=== PATIENT | female | born 1950 | race Caucasian/White ===

== ENCOUNTER 2017-03-15 14:32 | Outpatient (CLI) | payer MEDICARE ==
--- NOTE | 2017-03-15 17:40 | RAD ---
PA AND LATERAL VIEWS CHEST: HISTORY: Chronic obstructive pulmonary disease. FINDINGS: Comparison is made with the exam of 04/11/2011. The heart size is normal. The lungs are expanded without focal areas of consolidation, pneumothorax , or pleural effusions. Degenerative changes of the spine. IMPRESSION: No radiographic evidence of acute cardiopulmonary process. POS: [facility]
== END 2017-03-15 14:33 | disposition home or self-care (01) ==
LOC: RAD-FRANK 14:32
PROVIDERS: ATTEND Internal Medicine
DX: J44.9 Chronic obstructive pulmonary disease, unspecified (principal)
CPT/HCPCS: 71020

== ENCOUNTER 2017-03-17 12:59 | Outpatient (CLI) | payer MEDICARE ==
--- NOTE | 2017-03-20 10:56 | PFT ---
PATIENT HISTORY: HEIGHT: 54 IN WEIGHT: 116 LBS SMOKER: QUIT HOW LON YEARS PACKS PER DAY: 1 PACK PRODUCTIVE COUGH: NO LUNG DISEASE: SOB PHYSICIAN INTERPRETATION FINAL REPORT: FEV1 is 930 mL this improves to 1.08 liters after bronchodilators. Best FVC is 2.07. Total lung capacity is normal at 4.23 liters. RV/TLC ratio is increased. Diffusion is reduced and does not correct for volumes. There is no evidence of extrathoracic airway obstruction on flow volume loop. IMPRESSION: Overall this study that is suggestive of a severe obstructive defect with air trapping. There is a response to bronchodilators noted. Supplier Diversity Director: ARGENT[place] Cdl Instructor: ARGENTINA SUMNER
== END 2017-03-17 13:00 | disposition home or self-care (01) ==
LOC: CP 12:59
PROVIDERS: ATTEND Internal Medicine
DX: J44.9 Chronic obstructive pulmonary disease, unspecified (principal)
CPT/HCPCS: 94060; 94727; 94729

== ENCOUNTER 2020-11-08 09:36 | Inpatient (IN) | payer MEDICARE ==
[2020-11-08 18:16] VITALS: BMI 23.7
[2020-11-14 16:48] VITALS: BP 106/72; TEMP 98.2
== END 2020-11-14 18:20 | disposition home or self-care (01) | DRG 871 ==
LOC: ERS 09:36 → ERHOLD 13:08 → 2SW 17:34
PROVIDERS: ADMIT Family Medicine; ATTEND Internal Medicine
DX: A41.9 Sepsis, unspecified organism (principal); J96.01 Acute respiratory failure with hypoxia; I50.31 Acute diastolic (congestive) heart failure; E87.1 Hypo-osmolality and hyponatremia; N39.0 Urinary tract infection, site not specified; N17.9 Acute kidney failure, unspecified; J44.1 Chronic obstructive pulmonary disease with (acute) exacerbation; I13.0 Hypertensive heart and chronic kidney disease with heart failure and stage 1 through stage 4 chronic kidney disease, or unspecified chronic kidney disease; I47.1 Supraventricular tachycardia; Z20.822 Contact with and (suspected) exposure to COVID-19; R79.89 Other specified abnormal findings of blood chemistry; N18.30 Chronic kidney disease, stage 3 unspecified; B95.5 Unspecified streptococcus as the cause of diseases classified elsewhere; I16.0 Hypertensive urgency; Z96.641 Presence of right artificial hip joint; F17.210 Nicotine dependence, cigarettes, uncomplicated; I48.0 Paroxysmal atrial fibrillation; Z82.5 Family history of asthma and other chronic lower respiratory diseases; Z82.49 Family history of ischemic heart disease and other diseases of the circulatory system; Z90.49 Acquired absence of other specified parts of digestive tract; Z88.2 Allergy status to sulfonamides; Z79.51 Long term (current) use of inhaled steroids; Z79.899 Other long term (current) drug therapy; R65.20 Severe sepsis without septic shock
CPT/HCPCS: 36415; 36416; 71045; 80048; 80053; 80061; 81003; 81015; 82553; 83605; 83880; 84484; 85025; 85610; 85730; 87040; 87077; 87086; 90471; 90732; 93005; 93010; 93306; 94640; 94760; 96365; G0009; J0360; J0456; J0696; J1160; J1650; J2920; J3490; J7620; U0002; U0005

== ENCOUNTER 2021-03-16 10:46 | Inpatient (IN) | payer MEDICARE ==
[2021-03-16] MEDS ORDERED: cefTRIAXone\\ROCEPHIN 2 GM VIAL ONE (11:17)
[2021-03-16] MEDS ORDERED: Magnesium 2 GM/50 ML BAG (IN WATER) ONE (11:17)
[2021-03-16 11:29] LABS: White Blood Cell (WBC) Count 6.7 thou/uL (4.8-10.8)
[2021-03-16 11:36] LABS: INR-International Normal Ratio 1.2; PTT 27.6 sec (22.9-36.1); Prothrombin Time 14.9 sec (12.0-14.7)
[2021-03-16] MEDS ORDERED: Azithromycin 250 MG TAB ONE (11:43)
[2021-03-16 11:44] LABS: #Basophils 0.1 thou/uL (0.0-0.2); #Eosinphils 0.1 thou/uL (0.0-0.7); #Lymphocytes 2.2 thou/uL (1.20-3.40); #Monocytes 0.5 thou/uL (0.11-0.59); #Neutrophils 3.9 thou/uL (1.40-6.50); %Basophils 0.8 % (0.0-1.0); %Eosinophils 0.8 % (0.0-10.0); %Lymphocytes 32.6 % (21.0-51.0); %Monocytes 7.2 % (0.0-10.0); %Neutrophils 58.7 % (42.0-75.0); Hemoglobin 14.4 g/dL (12.0-16.0); MDiff Complete? YES; Macrocytosis MODERATE=16-30 cells (100X) (0-5/hpf); Mean Corpuscular HGB CONC 33.8 g/dL (32.0-36.0); Mean Corpuscular Hemoglobin 36.6 pg (27.0-31.0); Mean Platelet Volume 7.7 fL (7.4-10.4); Platelet Count 137 thou/uL (130-400); Platelet Morphology Comment Appears Adequate; RBC Distribution Width 12.8 % (11.5-14.5); Red Blood Cell (RBC) Count 3.93 mill/uL (4.20-5.40)
[2021-03-16 12:12] LABS: SARS-CoV-2 NAA Rapid Test Not Detected (NotDetected)
[2021-03-16 12:15] LABS: CKMB 7.1 ng/mL (0-6.6)
[2021-03-16 12:33] LABS: Bacteria/HPF None Seen HPF (None Seen); Bilirubin Negative (Negative); Blood, Urine Trace (Negative); Clarity Clear (Clear); Glucose, Urine (Dipstick) Normal (Negative); Ketone, Urine Negative (Negative); Leukocyte Negative Leu/uL (Negative); Nitrite Negative (Negative); Protein, Urine (Dipstick) 10 mg/dL (Neg-Trace); RBC/HPF 0-3 HPF (0-3); Specific Gravity, Urine 1.012 (1.002-1.036); Squamous Epithelial 0-3 HPF (0-3); Urobilinogen Normal mg/dL (Less than 2); WBC/HPF 0-3 HPF (0-3); pH, Urine 5.5 (5.0-9.0)
[2021-03-16 12:35] LABS: Chloride 98 mmol/L (98-107); Potassium 4.1 mmol/L (3.5-5.1); Sodium 138 mmol/L (136-145)
[2021-03-16 12:36] LABS: Calcium 9.1 mg/dL (7.8-10.44); Glucose 101 mg/dL (80-115)
[2021-03-16 12:37] LABS: Globulin 2.7 g/dL (2.4-3.5); Protein, Total 6.7 g/dL (5.8-8.1)
[2021-03-16 12:38] LABS: Anion Gap 17 mmol/L (10-20); Bilirubin, Total 0.8 mg/dL (0.2-1.2); Carbon Dioxide 27 mmol/L (23-31)
[2021-03-16 12:39] LABS: Alkaline Phosphatase 52 U/L (40-110)
[2021-03-16 12:40] LABS: Calc. Creatinine Clearance 0 mL/min (70-130)
[2021-03-16 12:41] LABS: BUN (Urea Nitrogen) 28 mg/dL (9.8-20.1)
[2021-03-16 12:42] LABS: ALT (SGPT) 26 U/L (8-55); AST (SGOT) 56 U/L (5-34)
[2021-03-16] MEDS ORDERED: Aspirin Chewable 81 MG TAB ONE (13:29)
[2021-03-16] MEDS ORDERED: Ondansetron PF 4 MG/2 ML Vial IVP PRN (14:10)
[2021-03-16] MEDS ORDERED: Calcium Carbonate 500 MG ChewTAB PO PRN (14:10)
[2021-03-16 14:49] LABS: Troponin I 0.019 ng/mL (< 0.028)
[2021-03-16] MEDS ORDERED: methylPREDNISolone Sod Succ/PF 125 MG/2 ML VIAL IVP SCH (16:30)
[2021-03-16 17:45] LABS: Troponin I Less than 0.010 ng/mL (< 0.028)
[2021-03-16] MEDS: Dronedarone HCl 400 MG TAB PO SCH (18:05)
[2021-03-16] MEDS: Acetaminophen 325 MG TAB PO PRN (19:53)
[2021-03-16] MEDS: Apixaban 2.5 MG TAB PO SCH (19:53)
[2021-03-16] MEDS ORDERED: Doxycycline 100 MG CAP PO SCH (21:00)
[2021-03-16] MEDS ORDERED: Famotidine/PF 20 mg/2ml Vial SLOW IVP SCH (21:00)
[2021-03-17] MEDS: Levalbuterol HCl 0.63 MG/3 ML NEB NEB PRN ×2 (02:52→22:54)
[2021-03-17 05:04] LABS: Band 2 % (5-11); Hemoglobin 12.9 g/dL (12.0-16.0); Lymphocytes 5 % (21-51); MDiff Complete? YES; Macrocytosis SLIGHT = 6-15 cells (100X) (0-5/hpf); Mean Corpuscular HGB CONC 33.2 g/dL (32.0-36.0); Mean Corpuscular Hemoglobin 35.6 pg (27.0-31.0); Mean Platelet Volume 7.8 fL (7.4-10.4); Monocytes 3 % (0-10); Neutrophil 90 % (42-75); Platelet Count 137 thou/uL (130-400); Platelet Morphology Comment Appears Adequate; RBC Distribution Width 12.4 % (11.5-14.5); Red Blood Cell (RBC) Count 3.61 mill/uL (4.20-5.40); White Blood Cell (WBC) Count 4.8 thou/uL (4.8-10.8)
[2021-03-17 05:15] LABS: Anion Gap 16 mmol/L (10-20); BUN (Urea Nitrogen) 36 mg/dL (9.8-20.1); Calc. Creatinine Clearance 29 mL/min (70-130); Calcium 9.4 mg/dL (7.8-10.44); Carbon Dioxide 22 mmol/L (23-31); Chloride 98 mmol/L (98-107); Glucose 149 mg/dL (80-115); Potassium 4.3 mmol/L (3.5-5.1); Sodium 132 mmol/L (136-145)
[2021-03-17] MEDS ORDERED: predniSONE 20 MG TAB PO SCH (08:00)
[2021-03-17] MEDS ORDERED: Non-Formulary Item 1 EACH (Albuterol Sulfate [Albuterol Sulfate Hfa] 8.5 GM Hfa.Aer.Ad) INH PRN (08:39)
[2021-03-17] MEDS ORDERED: Sodium Chloride 0.9% 1,000 ML IV SCH (08:45)
[2021-03-17] MEDS: Dronedarone HCl 400 MG TAB PO SCH ×2 (09:28→18:24)
[2021-03-17] MEDS: Apixaban 2.5 MG TAB PO SCH ×2 (09:28→20:18)
[2021-03-17] MEDS: Acetaminophen 325 MG TAB PO PRN (15:40)
[2021-03-17] MEDS: Benzonatate 100 MG CAP PO PRN (15:40)
[2021-03-17] MEDS: Cepastat Lozenges 1 LOZ PO PRN (18:24)
[2021-03-17] MEDS: Famotidine/PF 20 mg/2ml Vial SLOW IVP SCH (20:18)
[2021-03-18] MEDS ORDERED: methylPREDNISolone Sod Succ/PF 125 MG/2 ML VIAL IVP SCH (03:30)
[2021-03-18] MEDS ORDERED: Lorazepam 2 MG/ML VIAL SLOW IVP SCH (03:45)
[2021-03-18] MEDS ORDERED: Rocuronium Bromide 10 MG/ML (10ML VIAL) ONE (04:59)
[2021-03-18 05:27] LABS: pH, Arterial 7.05 (7.35-7.45)
[2021-03-18 05:28] LABS: Actual Bicarbonate (HCO3a) 20.1 mEq/L (22-28); Base Excess (BEa) -11.6 mEq/L (-2.0 to +3.0); CO2 Tension 73.8 mmHg (35.0-45.0); Carboxyhemoglobin (COHb) 0.1 gm% (0.0-3.0); Hemoglobin (Hb) 13.9 g/dL (12.0-16.0)
[2021-03-18 05:29] LABS: Potassium - ABG Lab 4.43 mmol/L (3.70-5.30)
[2021-03-18 05:30] LABS: Calcium, Ionized (arterial) 1.22 mmol/L (1.12-1.30); Puncture Site RRA
[2021-03-18 05:42] LABS: #Lymphocytes 1.2 thou/uL (1.20-3.40); #Monocytes 0.4 thou/uL (0.11-0.59); #Neutrophils 9.5 thou/uL (1.40-6.50); %Basophils 0.1 % (0.0-1.0); %Eosinophils 0.2 % (0.0-10.0); %Lymphocytes 10.5 % (21.0-51.0); %Monocytes 3.5 % (0.0-10.0); %Neutrophils 85.7 % (42.0-75.0); Hemoglobin 13.8 g/dL (12.0-16.0); Mean Corpuscular HGB CONC 33.5 g/dL (32.0-36.0); Mean Corpuscular Hemoglobin 37.2 pg (27.0-31.0); Mean Platelet Volume 7.9 fL (7.4-10.4); Platelet Count 154 thou/uL (130-400); RBC Distribution Width 12.5 % (11.5-14.5); Red Blood Cell (RBC) Count 3.72 mill/uL (4.20-5.40); White Blood Cell (WBC) Count 11.1 thou/uL (4.8-10.8)
[2021-03-18 05:59] LABS: ALT (SGPT) 29 U/L (8-55); AST (SGOT) 55 U/L (5-34); Albumin 4.2 g/dL (3.4-4.8); Alkaline Phosphatase 60 U/L (40-110); Anion Gap 19 mmol/L (10-20); BUN (Urea Nitrogen) 32 mg/dL (9.8-20.1); Bilirubin, Total 0.7 mg/dL (0.2-1.2); Calc. Creatinine Clearance 29 mL/min (70-130); Carbon Dioxide 21 mmol/L (23-31); Chloride 99 mmol/L (98-107); Glucose 244 mg/dL (80-115); Lactic Acid 4.9 mmol/L (0.5-2.2); Magnesium 2.4 mg/dL (1.6-2.6); Potassium 5.2 mmol/L (3.5-5.1); Protein, Total 7.2 g/dL (5.8-8.1); Sodium 134 mmol/L (136-145)
[2021-03-18 06:05] LABS: Troponin I 0.727 ng/mL (< 0.028)
[2021-03-18] MEDS ORDERED: Ventilator Sedation Protocol 1 EACH FS SCH (06:30)
[2021-03-18] MEDS ORDERED: Cefepime 2 GM in Sodium Chloride 0.9% 100 ML IVPB SCH (06:30)
[2021-03-18] MEDS ORDERED: Morphine 2 MG/ML VIAL SLOW IVP PRN (06:45)
[2021-03-18] MEDS ORDERED: DISCONTINUE PREVIOUS NARCOTIC PAIN MEDICATIONS AND BENZODIAZEPINES FS SCH (06:45)
[2021-03-18] MEDS ORDERED: Propofol BOLUS 1,000 MG/100 ML VIAL IV PRN (06:45)
[2021-03-18] MEDS ORDERED: Fentanyl BOLUS 250 ML IVPB PRN (06:45)
[2021-03-18] MEDS ORDERED: Lorazepam 2 MG/ML VIAL SLOW IVP PRN (06:45)
[2021-03-18] MEDS ORDERED: Sodium Chloride 0.9% 40 ML ONE (07:08)
[2021-03-18] MEDS ORDERED: Propofol 1,000 MG/100 ML VIAL IV ONE (07:15)
[2021-03-18] MEDS: Fentanyl CADD 100 ML IV SCH ×2 (07:39→18:15)
[2021-03-18] MEDS: methylPREDNISolone Sod Succ 40 MG VIAL IVP SCH ×4 (07:43→23:57)
[2021-03-18] MEDS: Dronedarone HCl 400 MG TAB PO SCH (07:43)
[2021-03-18 07:44] LABS: Actual Bicarbonate (HCO3a) 20.8 mEq/L (22-28); Base Excess (BEa) -3.9 mEq/L (-2.0 to +3.0); CO2 Tension 36.8 mmHg (35.0-45.0); Calcium, Ionized (arterial) 1.14 mmol/L (1.12-1.30); Hemoglobin (Hb) 13.2 g/dL (12.0-16.0); O2 Tension (PaO2), arterial 240.7 mmHg (> 80.0); Potassium - ABG Lab 4.39 mmol/L (3.70-5.30); pH, Arterial 7.37 (7.35-7.45)
[2021-03-18 07:45] LABS: Puncture Site RRA
[2021-03-18] MEDS ORDERED: CEFEPIME IVPB PRN (08:55)
[2021-03-18] MEDS ORDERED: Doxycycline 100 MG CAP PO SCH (09:00)
[2021-03-18 09:18] LABS: Troponin I 0.949 ng/mL (< 0.028)
[2021-03-18] MEDS ORDERED: Norepinephrine 8 MG/0.9% NS 250 ML IVPB SCH (09:45)
[2021-03-18] MEDS ORDERED: Vecuronium 10 MG VIAL IVP PRN ×2 (11:44→16:19)
[2021-03-18] MEDS ORDERED: Furosemide 20 MG/2 ML VIAL SLOW IVP SCH (13:15)
[2021-03-18] MEDS ORDERED: Aspirin 81 mg Enteric Coated Tablet PO SCH (13:15)
[2021-03-18] MEDS: Lactated Ringer's 1,000 ML IV SCH (13:25)
[2021-03-18] MEDS ORDERED: Fentanyl CADD 100 ML ONE (18:12)
[2021-03-18] MEDS ORDERED: Apixaban 2.5 MG TAB PER TUBE SCH (21:00)
[2021-03-18] MEDS ORDERED: Apixaban 2.5 MG TAB PO SCH (21:00)
[2021-03-18] MEDS ORDERED: Enoxaparin Sodium 40 MG/0.4 ML SYRINGE SC SCH (21:00)
[2021-03-18] MEDS: Famotidine/PF 20 mg/2ml Vial SLOW IVP SCH (21:27)
[2021-03-18] MEDS: Montelukast Sodium 10 mg Tablet PER TUBE SCH (21:27)
[2021-03-19] MEDS: Propofol 1,000 MG/100 ML VIAL IV PRN ×2 (03:00→18:52)
[2021-03-19] MEDS: Lactated Ringer's 1,000 ML IV SCH ×2 (03:15→17:30)
[2021-03-19 04:25] LABS: #Lymphocytes 0.1 thou/uL (1.20-3.40); #Monocytes 0.2 thou/uL (0.11-0.59); #Neutrophils 7.1 thou/uL (1.40-6.50); %Eosinophils 0.1 % (0.0-10.0); %Lymphocytes 1.9 % (21.0-51.0); %Monocytes 3.3 % (0.0-10.0); %Neutrophils 94.8 % (42.0-75.0); Hemoglobin 12.1 g/dL (12.0-16.0); Mean Corpuscular HGB CONC 33.3 g/dL (32.0-36.0); Mean Platelet Volume 8.3 fL (7.4-10.4); Platelet Count 128 thou/uL (130-400); RBC Distribution Width 12.5 % (11.5-14.5); Red Blood Cell (RBC) Count 3.27 mill/uL (4.20-5.40); White Blood Cell (WBC) Count 7.5 thou/uL (4.8-10.8)
[2021-03-19 04:49] LABS: Anion Gap 14 mmol/L (10-20); BUN (Urea Nitrogen) 45 mg/dL (9.8-20.1); Calc. Creatinine Clearance 28 mL/min (70-130); Calcium 9.2 mg/dL (7.8-10.44); Carbon Dioxide 23 mmol/L (23-31); Chloride 102 mmol/L (98-107); Glucose 165 mg/dL (80-115); Potassium 4.7 mmol/L (3.5-5.1); Sodium 134 mmol/L (136-145)
[2021-03-19 05:04] LABS: Critical Call Chem Troponin I RESULT DECREASING; Troponin I 0.524 ng/mL (< 0.028)
[2021-03-19] MEDS: Cefepime 2 GM in Sodium Chloride 0.9% 100 ML IVPB SCH (05:53)
[2021-03-19] MEDS: methylPREDNISolone Sod Succ 40 MG VIAL IVP SCH ×3 (05:53→18:52)
[2021-03-19] MEDS ORDERED: Sodium Chloride 0.9% 500 ML IV SCH (06:15)
[2021-03-19 07:05] LABS: Actual Bicarbonate (HCO3a) 22.3 mEq/L (22-28); Base Excess (BEa) -4.2 mEq/L (-2.0 to +3.0); CO2 Tension 46.6 mmHg (35.0-45.0); Calcium, Ionized (arterial) 1.21 mmol/L (1.12-1.30); Carboxyhemoglobin (COHb) 0.1 gm% (0.0-3.0); Hemoglobin (Hb) 12.5 g/dL (12.0-16.0); O2 Tension (PaO2), arterial 82.6 mmHg (> 80.0); Potassium - ABG Lab 4.65 mmol/L (3.70-5.30)
[2021-03-19] MEDS: Fentanyl CADD 100 ML IV SCH ×2 (07:38→23:31)
[2021-03-19 07:54] LABS: Puncture Site RRA
[2021-03-19] MEDS ORDERED: Lactated Ringer's 1,000 ML IV SCH (10:45)
[2021-03-19] MEDS ORDERED: Enoxaparin Sodium 30 MG/0.3 ML SYRINGE SC SCH (10:45)
[2021-03-19] MEDS: Montelukast Sodium 10 mg Tablet PER TUBE SCH (20:00)
[2021-03-19] MEDS: Famotidine/PF 20 mg/2ml Vial SLOW IVP SCH (20:00)
[2021-03-19] MEDS ORDERED: Enoxaparin Sodium 40 MG/0.4 ML SYRINGE SC SCH (21:00)
[2021-03-19] MEDS ORDERED: Fentanyl CADD 100 ML ONE (23:23)
[2021-03-20] MEDS: methylPREDNISolone Sod Succ 40 MG VIAL IVP SCH ×4 (01:26→20:13)
[2021-03-20] MEDS: Lactated Ringer's 1,000 ML IV SCH ×4 (02:06→20:15)
[2021-03-20 04:38] LABS: #Lymphocytes 0.2 thou/uL (1.20-3.40); #Monocytes 0.2 thou/uL (0.11-0.59); #Neutrophils 4.3 thou/uL (1.40-6.50); %Eosinophils 0.1 % (0.0-10.0); %Lymphocytes 3.5 % (21.0-51.0); %Neutrophils 91.5 % (42.0-75.0); Hemoglobin 10.5 g/dL (12.0-16.0); Mean Corpuscular HGB CONC 33.1 g/dL (32.0-36.0); Mean Corpuscular Hemoglobin 36.8 pg (27.0-31.0); Mean Platelet Volume 8.4 fL (7.4-10.4); Platelet Count 104 thou/uL (130-400); RBC Distribution Width 12.3 % (11.5-14.5); Red Blood Cell (RBC) Count 2.86 mill/uL (4.20-5.40); White Blood Cell (WBC) Count 4.7 thou/uL (4.8-10.8)
[2021-03-20 04:59] LABS: Anion Gap 14 mmol/L (10-20); BUN (Urea Nitrogen) 62 mg/dL (9.8-20.1); Calc. Creatinine Clearance 26 mL/min (70-130); Calcium 9.1 mg/dL (7.8-10.44); Carbon Dioxide 23 mmol/L (23-31); Chloride 102 mmol/L (98-107); Glucose 128 mg/dL (80-115); Potassium 4.6 mmol/L (3.5-5.1); Sodium 134 mmol/L (136-145)
[2021-03-20 05:11] LABS: Troponin I 0.565 ng/mL (< 0.028)
[2021-03-20] MEDS: Cefepime 2 GM in Sodium Chloride 0.9% 100 ML IVPB SCH (05:19)
[2021-03-20 07:28] LABS: Actual Bicarbonate (HCO3a) 22.8 mEq/L (22-28); Base Excess (BEa) -4.1 mEq/L (-2.0 to +3.0); CO2 Tension 49.2 mmHg (35.0-45.0); Calcium, Ionized (arterial) 1.25 mmol/L (1.12-1.30); Carboxyhemoglobin (COHb) 0.1 gm% (0.0-3.0); Hemoglobin (Hb) 12.4 g/dL (12.0-16.0); O2 Tension (PaO2), arterial 67.7 mmHg (> 80.0); Potassium - ABG Lab 4.85 mmol/L (3.70-5.30); pH, Arterial 7.28 (7.35-7.45)
[2021-03-20 07:43] LABS: Puncture Site RRA
[2021-03-20] MEDS ORDERED: Dronedarone HCl 400 MG TAB PO SCH (08:15)
[2021-03-20] MEDS ORDERED: DC Sedation Protocol FS ONE (08:20)
[2021-03-20] MEDS ORDERED: Enoxaparin Sodium 30 MG/0.3 ML SYRINGE SC SCH (09:00)
[2021-03-20] MEDS: Aspirin 81 mg Enteric Coated Tablet PO SCH (09:49)
[2021-03-20] MEDS: Enoxaparin Sodium 30 MG/0.3 ML SYRINGE SC SCH ×2 (09:53→20:14)
[2021-03-20] MEDS: Dronedarone HCl 400 MG TAB PO SCH (17:01)
[2021-03-20] MEDS: Acetaminophen 325 MG TAB PO PRN (17:05)
[2021-03-20] MEDS: Mometasone 200 MCG/Formoterol 5 MCG 120 PUFF INHALER INH SCH (18:16)
[2021-03-20] MEDS: Montelukast Sodium 10 mg Tablet PER TUBE SCH (20:13)
[2021-03-20] MEDS: Famotidine/PF 20 mg/2ml Vial SLOW IVP SCH (20:13)
[2021-03-21 04:54] LABS: #Lymphocytes 0.2 thou/uL (1.20-3.40); #Monocytes 0.2 thou/uL (0.11-0.59); #Neutrophils 2.7 thou/uL (1.40-6.50); %Eosinophils 0.2 % (0.0-10.0); %Lymphocytes 7.1 % (21.0-51.0); %Monocytes 5.4 % (0.0-10.0); %Neutrophils 87.3 % (42.0-75.0); Hemoglobin 10.9 g/dL (12.0-16.0); Mean Corpuscular HGB CONC 34.1 g/dL (32.0-36.0); Mean Corpuscular Hemoglobin 36.8 pg (27.0-31.0); Mean Platelet Volume 7.8 fL (7.4-10.4); Platelet Count 120 thou/uL (130-400); RBC Distribution Width 12.1 % (11.5-14.5); Red Blood Cell (RBC) Count 2.97 mill/uL (4.20-5.40); White Blood Cell (WBC) Count 3.1 thou/uL (4.8-10.8)
[2021-03-21 05:09] LABS: Anion Gap 10 mmol/L (10-20); BUN (Urea Nitrogen) 58 mg/dL (9.8-20.1); Calc. Creatinine Clearance 35 mL/min (70-130); Calcium 9.7 mg/dL (7.8-10.44); Carbon Dioxide 28 mmol/L (23-31); Chloride 104 mmol/L (98-107); Glucose 125 mg/dL (80-115); Potassium 4.6 mmol/L (3.5-5.1); Sodium 137 mmol/L (136-145)
[2021-03-21] MEDS: Cefepime 1 GM in Sodium Chloride 0.9% 100 ML IVPB SCH ×2 (05:56→17:29)
[2021-03-21] MEDS: Mometasone 200 MCG/Formoterol 5 MCG 120 PUFF INHALER INH SCH ×2 (07:34→19:48)
[2021-03-21] MEDS: Aspirin 81 mg Enteric Coated Tablet PO SCH (07:38)
[2021-03-21] MEDS: Dronedarone HCl 400 MG TAB PO SCH (07:38)
[2021-03-21] MEDS: methylPREDNISolone Sod Succ 40 MG VIAL IVP SCH ×2 (07:39→20:57)
[2021-03-21] MEDS: Enoxaparin Sodium 30 MG/0.3 ML SYRINGE SC SCH ×2 (07:39→20:56)
[2021-03-21] MEDS ORDERED: Furosemide 40 MG/4 ML VIAL SLOW IVP SCH (11:15)
[2021-03-21] MEDS ORDERED: Potassium Chloride 20 MEQ TAB PO SCH (12:00)
[2021-03-21] MEDS: Amiodarone 450 MG, Admixture Fee 1 EACH in Dextrose 5% in Water 250 ML IVPB SCH ×2 (16:38→23:55)
[2021-03-21] MEDS: Famotidine/PF 20 mg/2ml Vial SLOW IVP SCH (20:57)
[2021-03-21] MEDS: Montelukast Sodium 10 mg Tablet PER TUBE SCH (20:57)
[2021-03-22] MEDS: Benzonatate 100 MG CAP PO PRN ×3 (03:04→21:32)
[2021-03-22 03:56] LABS: #Lymphocytes 0.2 thou/uL (1.20-3.40); #Monocytes 0.1 thou/uL (0.11-0.59); #Neutrophils 2.8 thou/uL (1.40-6.50); %Basophils 0.4 % (0.0-1.0); %Eosinophils 0.2 % (0.0-10.0); %Lymphocytes 6.5 % (21.0-51.0); %Monocytes 4.4 % (0.0-10.0); %Neutrophils 88.6 % (42.0-75.0); Hemoglobin 11.4 g/dL (12.0-16.0); Mean Corpuscular HGB CONC 33.7 g/dL (32.0-36.0); Mean Corpuscular Hemoglobin 36.4 pg (27.0-31.0); Mean Platelet Volume 7.6 fL (7.4-10.4); Platelet Count 151 thou/uL (130-400); RBC Distribution Width 12.2 % (11.5-14.5); Red Blood Cell (RBC) Count 3.14 mill/uL (4.20-5.40); White Blood Cell (WBC) Count 3.2 thou/uL (4.8-10.8)
[2021-03-22 04:14] LABS: Anion Gap 14 mmol/L (10-20); BUN (Urea Nitrogen) 53 mg/dL (9.8-20.1); Calc. Creatinine Clearance 37 mL/min (70-130); Calcium 9.8 mg/dL (7.8-10.44); Carbon Dioxide 27 mmol/L (23-31); Chloride 103 mmol/L (98-107); Glucose 137 mg/dL (80-115); Potassium 4.8 mmol/L (3.5-5.1); Sodium 139 mmol/L (136-145)
[2021-03-22] MEDS: Cefepime 1 GM in Sodium Chloride 0.9% 100 ML IVPB SCH ×2 (06:05→17:41)
[2021-03-22] MEDS: Mometasone 200 MCG/Formoterol 5 MCG 120 PUFF INHALER INH SCH ×2 (06:55→22:29)
[2021-03-22] MEDS: Enoxaparin Sodium 30 MG/0.3 ML SYRINGE SC SCH ×2 (08:23→21:33)
[2021-03-22] MEDS: Aspirin 81 mg Enteric Coated Tablet PO SCH (08:23)
[2021-03-22] MEDS: methylPREDNISolone Sod Succ 40 MG VIAL IVP SCH ×2 (08:23→21:34)
[2021-03-22] MEDS: Furosemide 20 MG/2 ML VIAL SLOW IVP SCH (08:23)
[2021-03-22] MEDS ORDERED: Amiodarone 450 MG, Admixture Fee 1 EACH in Dextrose 5% in Water 250 ML IVPB SCH (09:10)
[2021-03-22] MEDS: Acetaminophen 325 MG TAB PO PRN (13:07)
[2021-03-22] MEDS: GUAIFENESIN SF SOLN 200 MG/10 ML UDCUP PO PRN (17:49)
[2021-03-22] MEDS ORDERED: Furosemide 20 MG/2 ML VIAL SLOW IVP SCH (18:00)
[2021-03-22] MEDS ORDERED: Potassium Chloride 20 MEQ TAB PO SCH (18:00)
[2021-03-22] MEDS: Famotidine/PF 20 mg/2ml Vial SLOW IVP SCH (21:33)
[2021-03-22] MEDS: Montelukast Sodium 10 mg Tablet PER TUBE SCH (21:34)
[2021-03-23] MEDS ORDERED: Metoprolol Tartrate 5 MG/5 ML VIAL ONE (02:18)
[2021-03-23] MEDS ORDERED: Metoprolol Tartrate 5 MG/5 ML VIAL IVP SCH ×2 (02:30→04:30)
[2021-03-23 04:15] LABS: #Lymphocytes 0.3 thou/uL (1.20-3.40); #Monocytes 0.3 thou/uL (0.11-0.59); #Neutrophils 3.7 thou/uL (1.40-6.50); %Eosinophils 0.2 % (0.0-10.0); %Lymphocytes 6.1 % (21.0-51.0); %Neutrophils 87.8 % (42.0-75.0); Hemoglobin 12.1 g/dL (12.0-16.0); Mean Corpuscular HGB CONC 33.6 g/dL (32.0-36.0); Mean Corpuscular Hemoglobin 36.2 pg (27.0-31.0); Mean Platelet Volume 7.7 fL (7.4-10.4); Platelet Count 162 thou/uL (130-400); RBC Distribution Width 12.2 % (11.5-14.5); Red Blood Cell (RBC) Count 3.33 mill/uL (4.20-5.40); White Blood Cell (WBC) Count 4.2 thou/uL (4.8-10.8)
[2021-03-23 04:39] LABS: Anion Gap 12 mmol/L (10-20); BUN (Urea Nitrogen) 53 mg/dL (9.8-20.1); Calc. Creatinine Clearance 36 mL/min (70-130); Calcium 9.8 mg/dL (7.8-10.44); Carbon Dioxide 31 mmol/L (23-31); Chloride 103 mmol/L (98-107); Glucose 147 mg/dL (80-115); Potassium 4.9 mmol/L (3.5-5.1); Sodium 141 mmol/L (136-145)
[2021-03-23] MEDS: Cefepime 1 GM in Sodium Chloride 0.9% 100 ML IVPB SCH ×2 (06:22→17:47)
[2021-03-23] MEDS: GUAIFENESIN SF SOLN 200 MG/10 ML UDCUP PO PRN (06:22)
[2021-03-23] MEDS: Mometasone 200 MCG/Formoterol 5 MCG 120 PUFF INHALER INH SCH ×2 (08:00→19:14)
[2021-03-23] MEDS: Aspirin 81 mg Enteric Coated Tablet PO SCH (09:32)
[2021-03-23] MEDS: Enoxaparin Sodium 30 MG/0.3 ML SYRINGE SC SCH (09:32)
[2021-03-23] MEDS: methylPREDNISolone Sod Succ 40 MG VIAL IVP SCH ×2 (09:33→21:30)
[2021-03-23] MEDS: Furosemide 20 MG/2 ML VIAL SLOW IVP SCH (09:33)
[2021-03-23] MEDS: Morphine 4 MG/ML VIAL SLOW IVP PRN ×4 (12:14→19:32)
[2021-03-23] MEDS ORDERED: Furosemide 20 MG/2 ML VIAL SLOW IVP SCH (18:00)
[2021-03-23] MEDS: Montelukast Sodium 10 mg Tablet PER TUBE SCH (21:30)
[2021-03-23] MEDS: Famotidine/PF 20 mg/2ml Vial SLOW IVP SCH (21:30)
[2021-03-23] MEDS: Acetaminophen 325 MG TAB PO PRN (22:47)
[2021-03-23] MEDS: Benzonatate 100 MG CAP PO PRN (22:47)
[2021-03-24 04:04] LABS: #Lymphocytes 0.2 thou/uL (1.20-3.40); #Monocytes 0.3 thou/uL (0.11-0.59); #Neutrophils 4.4 thou/uL (1.40-6.50); %Lymphocytes 4.4 % (21.0-51.0); %Monocytes 5.2 % (0.0-10.0); %Neutrophils 90.4 % (42.0-75.0); Hemoglobin 8.3 g/dL (12.0-16.0); Mean Corpuscular HGB CONC 33.5 g/dL (32.0-36.0); Mean Corpuscular Hemoglobin 35.9 pg (27.0-31.0); Mean Platelet Volume 7.3 fL (7.4-10.4); Platelet Count 177 thou/uL (130-400); RBC Distribution Width 12.2 % (11.5-14.5); Red Blood Cell (RBC) Count 2.32 mill/uL (4.20-5.40); White Blood Cell (WBC) Count 4.9 thou/uL (4.8-10.8)
[2021-03-24 04:24] LABS: Anion Gap 11 mmol/L (10-20); BUN (Urea Nitrogen) 53 mg/dL (9.8-20.1); Calc. Creatinine Clearance 35 mL/min (70-130); Calcium 9.7 mg/dL (7.8-10.44); Carbon Dioxide 33 mmol/L (23-31); Chloride 102 mmol/L (98-107); Glucose 146 mg/dL (80-115); Potassium 4.9 mmol/L (3.5-5.1); Sodium 141 mmol/L (136-145)
[2021-03-24] MEDS: GUAIFENESIN SF SOLN 200 MG/10 ML UDCUP PO PRN ×3 (04:24→22:56)
[2021-03-24] MEDS: Acetaminophen 325 MG TAB PO PRN ×2 (04:25→20:59)
[2021-03-24] MEDS: Cefepime 1 GM in Sodium Chloride 0.9% 100 ML IVPB SCH ×2 (05:26→17:32)
[2021-03-24] MEDS: Mometasone 200 MCG/Formoterol 5 MCG 120 PUFF INHALER INH SCH ×2 (07:51→19:48)
[2021-03-24] MEDS ORDERED: HYDROcodone/Acetaminophen 5/325 mg Tablet PO PRN (08:31)
[2021-03-24] MEDS ORDERED: Morphine 4 MG/ML VIAL SLOW IVP PRN (08:32)
[2021-03-24] MEDS: Furosemide 20 MG/2 ML VIAL SLOW IVP SCH (08:42)
[2021-03-24] MEDS: methylPREDNISolone Sod Succ 40 MG VIAL IVP SCH (08:42)
[2021-03-24] MEDS: Famotidine 20 MG TAB PO SCH (08:42)
[2021-03-24 11:12] LABS: SARS-CoV-2 PCR by NAA Not Detected (NotDetected)
[2021-03-24] MEDS: predniSONE 20 MG TAB PO SCH (12:59)
[2021-03-24 16:42] LABS: Hemoglobin 8.9 g/dL (12.0-16.0)
[2021-03-24] MEDS: Amiodarone 200 MG TAB PO SCH ×2 (17:32→20:59)
[2021-03-24] MEDS: Montelukast Sodium 10 mg Tablet PER TUBE SCH (20:59)
[2021-03-24] MEDS: Benzonatate 100 MG CAP PO PRN (21:00)
[2021-03-24] MEDS: Cyanocobalamin (Vitamin B-12) 1,000 MCG TAB PO SCH (21:02)
[2021-03-24] MEDS: Senokot S 8.6-50 MG TAB PO SCH (21:02)
[2021-03-24] MEDS: Folic Acid 1 MG TAB PO SCH (21:02)
[2021-03-25 05:35] LABS: #Lymphocytes 1.1 thou/uL (1.20-3.40); #Monocytes 0.6 thou/uL (0.11-0.59); #Neutrophils 4.3 thou/uL (1.40-6.50); %Basophils 0.3 % (0.0-1.0); %Eosinophils 0.5 % (0.0-10.0); %Monocytes 10.3 % (0.0-10.0); %Neutrophils 70.9 % (42.0-75.0); Hemoglobin 8.7 g/dL (12.0-16.0); Mean Corpuscular HGB CONC 32.9 g/dL (32.0-36.0); Mean Corpuscular Hemoglobin 35.6 pg (27.0-31.0); Mean Platelet Volume 7.5 fL (7.4-10.4); Platelet Count 213 thou/uL (130-400); RBC Distribution Width 12.2 % (11.5-14.5); Red Blood Cell (RBC) Count 2.43 mill/uL (4.20-5.40); White Blood Cell (WBC) Count 6.1 thou/uL (4.8-10.8)
[2021-03-25 05:49] LABS: Phosphorus 2.9 mg/dL (2.3-4.7)
[2021-03-25 05:53] LABS: Anion Gap 13 mmol/L (10-20); BUN (Urea Nitrogen) 51 mg/dL (9.8-20.1); Calc. Creatinine Clearance 33 mL/min (70-130); Calcium 9.9 mg/dL (7.8-10.44); Carbon Dioxide 34 mmol/L (23-31); Chloride 99 mmol/L (98-107); Glucose 94 mg/dL (80-115); Iron 86 ug/dL (50-170); Iron Binding Capacity, Total 314 mcg/dL (265-497); Magnesium 1.7 mg/dL (1.6-2.6); Potassium 4.1 mmol/L (3.5-5.1); Sodium 142 mmol/L (136-145)
[2021-03-25] MEDS: Cefepime 1 GM in Sodium Chloride 0.9% 100 ML IVPB SCH (06:01)
[2021-03-25] MEDS: Mometasone 200 MCG/Formoterol 5 MCG 120 PUFF INHALER INH SCH ×2 (06:42→18:50)
[2021-03-25] MEDS: Amiodarone 200 MG TAB PO SCH ×3 (08:28→21:06)
[2021-03-25] MEDS: Furosemide 20 MG/2 ML VIAL SLOW IVP SCH (08:30)
[2021-03-25] MEDS: Aspirin 81 mg Enteric Coated Tablet PO SCH (08:30)
[2021-03-25] MEDS: Senokot S 8.6-50 MG TAB PO SCH ×2 (08:31→21:13)
[2021-03-25] MEDS: Famotidine 20 MG TAB PO SCH (08:31)
[2021-03-25] MEDS: predniSONE 20 MG TAB PO SCH (08:39)
[2021-03-25] MEDS: Acetaminophen 325 MG TAB PO PRN ×2 (08:39→21:09)
[2021-03-25] MEDS: GUAIFENESIN SF SOLN 200 MG/10 ML UDCUP PO PRN ×2 (08:43→21:08)
[2021-03-25] MEDS ORDERED: Polyethylene Glycol 3350 17 GM Packet PO SCH (09:00)
[2021-03-25 09:07] VITALS: BMI 25.0
[2021-03-25] MEDS ORDERED: guaiFENesin ER 600 MG TAB PO SCH (10:15)
[2021-03-25] MEDS ORDERED: Loratadine 10 MG TAB PO SCH (10:15)
[2021-03-25] MEDS ORDERED: Magnesium Sulfate 4 GM in Sodium Chloride 0.9% 250 ML 250 ML IVPB SCH (10:15)
[2021-03-25] MEDS ORDERED: Magnesium 2 GM/50 ML 2 GM in Premix Bag 1 BAG IVPB SCH (10:30)
[2021-03-25] MEDS: Iron, Sodium Ferric Gluconate 250 MG in Sodium Chloride 0.9% 250 ML 250 ML IVPB SCH ×2 (11:19→22:44)
[2021-03-25] MEDS: guaiFENesin ER 600 MG TAB PO SCH (21:06)
[2021-03-25] MEDS: Cyanocobalamin (Vitamin B-12) 1,000 MCG TAB PO SCH (21:06)
[2021-03-25] MEDS: Montelukast Sodium 10 mg Tablet PER TUBE SCH (21:06)
[2021-03-25] MEDS: Folic Acid 1 MG TAB PO SCH (21:06)
[2021-03-25] MEDS: Cepastat Lozenges 1 LOZ PO PRN (23:34)
[2021-03-26] MEDS: Benzonatate 100 MG CAP PO PRN (03:14)
[2021-03-26] MEDS: Cepastat Lozenges 1 LOZ PO PRN (04:12)
[2021-03-26 05:08] LABS: #Lymphocytes 1.1 thou/uL (1.20-3.40); #Monocytes 0.6 thou/uL (0.11-0.59); #Neutrophils 6.2 thou/uL (1.40-6.50); %Eosinophils 0.3 % (0.0-10.0); %Lymphocytes 13.6 % (21.0-51.0); %Monocytes 7.2 % (0.0-10.0); %Neutrophils 78.9 % (42.0-75.0); Hemoglobin 8.8 g/dL (12.0-16.0); Mean Corpuscular Hemoglobin 36.6 pg (27.0-31.0); Mean Platelet Volume 7.4 fL (7.4-10.4); Platelet Count 220 thou/uL (130-400); RBC Distribution Width 12.4 % (11.5-14.5); Red Blood Cell (RBC) Count 2.39 mill/uL (4.20-5.40); White Blood Cell (WBC) Count 7.9 thou/uL (4.8-10.8)
[2021-03-26 05:26] LABS: Anion Gap 11 mmol/L (10-20); BUN (Urea Nitrogen) 44 mg/dL (9.8-20.1); Calc. Creatinine Clearance 34 mL/min (70-130); Calcium 9.6 mg/dL (7.8-10.44); Carbon Dioxide 33 mmol/L (23-31); Chloride 101 mmol/L (98-107); Glucose 118 mg/dL (80-115); Sodium 141 mmol/L (136-145)
[2021-03-26] MEDS ORDERED: Metoprolol Tartrate 5 MG/5 ML VIAL IVP PRN (05:36)
[2021-03-26] MEDS ORDERED: Metoprolol Tartrate 5 MG/5 ML VIAL IVP SCH (05:45)
[2021-03-26] MEDS: Mometasone 200 MCG/Formoterol 5 MCG 120 PUFF INHALER INH SCH (06:32)
[2021-03-26] MEDS ORDERED: Cefdinir 300 MG CAP PO SCH (09:00)
[2021-03-26] MEDS ORDERED: Loratadine 10 MG TAB PO SCH (09:00)
[2021-03-26] MEDS: guaiFENesin ER 600 MG TAB PO SCH (09:38)
[2021-03-26] MEDS: Famotidine 20 MG TAB PO SCH (09:39)
[2021-03-26] MEDS: Senokot S 8.6-50 MG TAB PO SCH (09:39)
[2021-03-26] MEDS: predniSONE 20 MG TAB PO SCH (09:39)
[2021-03-26] MEDS: Aspirin 81 mg Enteric Coated Tablet PO SCH (09:39)
[2021-03-26] MEDS: Amiodarone 200 MG TAB PO SCH (09:40)
[2021-03-26] MEDS ORDERED: Nicotine 14 MG PATCH TD PRN (09:45)
[2021-03-26 16:11] VITALS: BP 133/76; TEMP 98.1
[2021-03-26] MEDS ORDERED: Rosuvastatin 20 MG TAB PO SCH (21:00)
[2021-03-27] MEDS ORDERED: Furosemide 40 MG TAB PO SCH (07:30)
[2021-03-27] MEDS ORDERED: Potassium Chloride 20 MEQ TAB PO SCH (08:00)
[2021-03-27] MEDS ORDERED: Loratadine 10 MG TAB PO SCH (09:00)
== END 2021-03-26 16:15 | disposition home health service (06) | DRG 871 ==
LOC: ERS 10:46 → ERHOLD 12:27 → 2NO 14:25 → PACU-TCU 03-18 05:56 → CCU 03-18 11:06 → IMCU/EMU 03-21 19:23 → 2NO 03-24 19:22
PROVIDERS: ADMIT Hospitalist; ATTEND Internal Medicine
PROC: 5A1945Z Respiratory Ventilation, 24-96 Consecutive Hours (ICD-10-PCS; principal; 2021-03-18)
PROC: 0BH17EZ Insertion of Endotracheal Airway into Trachea, Via Natural or Artificial Opening (ICD-10-PCS; 2021-03-18)
PROC: 0D9670Z Drainage of Stomach with Drainage Device, Via Natural or Artificial Opening (ICD-10-PCS; 2021-03-18)
PROC: 3E033XZ Introduction of Vasopressor into Peripheral Vein, Percutaneous Approach (ICD-10-PCS; 2021-03-18)
PROC: 30233K1 Transfusion of Nonautologous Frozen Plasma into Peripheral Vein, Percutaneous Approach (ICD-10-PCS; 2021-03-23)
DX: A41.9 Sepsis, unspecified organism (principal); I21.A1 Myocardial infarction type 2; N17.0 Acute kidney failure with tubular necrosis; I50.31 Acute diastolic (congestive) heart failure; J96.21 Acute and chronic respiratory failure with hypoxia; J96.22 Acute and chronic respiratory failure with hypercapnia; R65.21 Severe sepsis with septic shock; J44.1 Chronic obstructive pulmonary disease with (acute) exacerbation; J45.902 Unspecified asthma with status asthmaticus; N18.4 Chronic kidney disease, stage 4 (severe); I13.0 Hypertensive heart and chronic kidney disease with heart failure and stage 1 through stage 4 chronic kidney disease, or unspecified chronic kidney disease; E87.1 Hypo-osmolality and hyponatremia; D62 Acute posthemorrhagic anemia; Z20.822 Contact with and (suspected) exposure to COVID-19; I48.0 Paroxysmal atrial fibrillation; Z96.641 Presence of right artificial hip joint; M79.81 Nontraumatic hematoma of soft tissue; Z79.01 Long term (current) use of anticoagulants; Z88.2 Allergy status to sulfonamides; Z79.51 Long term (current) use of inhaled steroids; Z79.899 Other long term (current) drug therapy; Z78.1 Physical restraint status; Z90.49 Acquired absence of other specified parts of digestive tract; D50.9 Iron deficiency anemia, unspecified; I25.10 Atherosclerotic heart disease of native coronary artery without angina pectoris; F17.210 Nicotine dependence, cigarettes, uncomplicated
CPT/HCPCS: 0240U; 36415; 36416; 36430; 36600; 51701; 71045; 74176; 80048; 80053; 81003; 81015; 82553; 82728; 82805; 83540; 83550; 83605; 83735; 83880; 84100; 84484; 85007; 85025; 85027; 85379; 85610; 85730; 86850; 86900; 86901; 87040; 87086; 93005; 93010; 93306; 94002; 94640; 94760; 96365; J0282; J0692; J0696; J1650; J1940; J2060; J2270; J2704; J2916; J2920; J2930; J3010; J3475; J3490; J7030; J7050; J7070; J7120; J7512; J7614; J7620; P9059; S0028; U0003; U0005

== ENCOUNTER 2021-05-20 06:48 | Day surgery (SDC) | payer MEDICARE ==
[2021-05-15 16:35] VITALS: BMI 23.7
[2021-05-20 08:27] LABS: #Eosinphils 0.2 thou/uL (0.0-0.7); #Lymphocytes 1.4 thou/uL (1.20-3.40); #Monocytes 0.5 thou/uL (0.11-0.59); #Neutrophils 3.3 thou/uL (1.40-6.50); %Basophils 0.6 % (0.0-1.0); %Eosinophils 3.2 % (0.0-10.0); %Lymphocytes 26.6 % (21.0-51.0); %Monocytes 8.4 % (0.0-10.0); %Neutrophils 61.3 % (42.0-75.0); Hemoglobin 10.8 g/dL (12.0-16.0); Mean Corpuscular Hemoglobin 36.4 pg (27.0-31.0); Mean Platelet Volume 7.7 fL (7.4-10.4); Platelet Count 202 thou/uL (130-400); RBC Distribution Width 13.6 % (11.5-14.5); Red Blood Cell (RBC) Count 2.98 mill/uL (4.20-5.40); White Blood Cell (WBC) Count 5.3 thou/uL (4.8-10.8)
[2021-05-20 08:39] LABS: ALT (SGPT) 18 U/L (8-55); AST (SGOT) 27 U/L (5-34); Albumin 4.1 g/dL (3.4-4.8); Alkaline Phosphatase 60 U/L (40-110); Anion Gap 19 mmol/L (10-20); BUN (Urea Nitrogen) 35 mg/dL (9.8-20.1); Bilirubin, Total 0.7 mg/dL (0.2-1.2); Calc. Creatinine Clearance 18 mL/min (70-130); Calcium 9.5 mg/dL (7.8-10.44); Carbon Dioxide 24 mmol/L (23-31); Chloride 99 mmol/L (98-107); Globulin 3.2 g/dL (2.4-3.5); Glucose 94 mg/dL (80-115); Protein, Total 7.3 g/dL (5.8-8.1); Sodium 139 mmol/L (136-145)
[2021-05-20 08:41] LABS: Potassium 2.9 mmol/L (3.5-5.1)
== END 2021-05-20 09:30 | disposition home or self-care (01) ==
LOC: CCL 06:48
PROVIDERS: ATTEND Internal Medicine Cardiovascular Disease
DX: I21.4 Non-ST elevation (NSTEMI) myocardial infarction (principal); F17.210 Nicotine dependence, cigarettes, uncomplicated; I11.0 Hypertensive heart disease with heart failure; I50.32 Chronic diastolic (congestive) heart failure; I48.0 Paroxysmal atrial fibrillation; I49.1 Atrial premature depolarization; E78.00 Pure hypercholesterolemia, unspecified; J44.9 Chronic obstructive pulmonary disease, unspecified; Z53.09 Procedure and treatment not carried out because of other contraindication; Z79.01 Long term (current) use of anticoagulants; Z79.82 Long term (current) use of aspirin; Z79.899 Other long term (current) drug therapy; Z88.2 Allergy status to sulfonamides
CPT/HCPCS: 80053; 85025

== ENCOUNTER 2021-06-12 05:58 | Day surgery (SDC) | payer MEDICARE ==
[2021-06-10 12:37] VITALS: BMI 23.7
[2021-06-12] MEDS ORDERED: Fentanyl 100 MCG/2 ML VIAL ONE (07:10)
[2021-06-12] MEDS ORDERED: Midazolam HCl 2 mg/2 ml Vial ONE (07:10)
[2021-06-12 07:13] LABS: Anion Gap 18 mmol/L (10-20); BUN (Urea Nitrogen) 37 mg/dL (9.8-20.1); Calc. Creatinine Clearance 28 mL/min (70-130); Calcium 9.7 mg/dL (7.8-10.44); Carbon Dioxide 20 mmol/L (23-31); Chloride 104 mmol/L (98-107); Glucose 97 mg/dL (80-115); Potassium 3.7 mmol/L (3.5-5.1); Sodium 138 mmol/L (136-145)
== END 2021-06-12 12:40 | disposition home or self-care (01) ==
LOC: CCL 05:58
PROVIDERS: ATTEND Internal Medicine Cardiovascular Disease
DX: I21.4 Non-ST elevation (NSTEMI) myocardial infarction (principal); I25.10 Atherosclerotic heart disease of native coronary artery without angina pectoris; I25.84 Coronary atherosclerosis due to calcified coronary lesion; I11.0 Hypertensive heart disease with heart failure; I50.32 Chronic diastolic (congestive) heart failure; I48.0 Paroxysmal atrial fibrillation; J44.9 Chronic obstructive pulmonary disease, unspecified; I49.1 Atrial premature depolarization; F17.210 Nicotine dependence, cigarettes, uncomplicated; N28.9 Disorder of kidney and ureter, unspecified; E78.00 Pure hypercholesterolemia, unspecified; Z79.01 Long term (current) use of anticoagulants; Z79.82 Long term (current) use of aspirin; Z79.899 Other long term (current) drug therapy; Z88.2 Allergy status to sulfonamides
CPT/HCPCS: 80048; 99152; J2250; J3010

== ENCOUNTER 2021-06-22 11:14 | Emergency (ER) | payer MEDICARE ==
[2021-06-22] MEDS ORDERED: Acetaminophen 500 MG TAB ONE (11:55)
== END 2021-06-22 13:01 | disposition home or self-care (01) ==
LOC: ERS 11:14
DX: S70.02XA Contusion of left hip, initial encounter (principal); Z79.01 Long term (current) use of anticoagulants; I10 Essential (primary) hypertension; I48.91 Unspecified atrial fibrillation; J44.9 Chronic obstructive pulmonary disease, unspecified; F17.210 Nicotine dependence, cigarettes, uncomplicated; W18.30XA Fall on same level, unspecified, initial encounter
CPT/HCPCS: 70450; 71045; 72170; 93005